=== PATIENT | male | born 1970 | race Caucasian/White ===

== ENCOUNTER 2020-07-09 07:11 | Emergency (ER) | payer OTHER ==
[~2020-07-09] VITALS: Ht 175.3 cm; Wt 83.9 kg
[2020-07-09] MEDS ORDERED: CORTISPORIN OTI10 M2 OTIC (07:58)
[2020-07-09 08:12] VITALS: BP 130/89
== END 2020-07-09 08:02 | disposition home or self-care (01) ==
LOC: M.ERS 07:11
DX: H61.23 Impacted cerumen, bilateral (principal)